=== PATIENT | female | born 1935 | race Caucasian/White ===

== ENCOUNTER 2017-02-15 13:55 | Observation (INO) | payer MEDICARE, BC ==
[~2017-02-15 13:55] MED LIST: ASPIR 8181 MG PO; CITRACAL + D C1 EACH PO; CLARITIN10 M2 PO; COZAAR100 MG PO; FISH OIL 1,2001 CAP PO; FLEXERIL10 MG PO; LEVOTHROID75 MCG PO; LUTEIN6 M1 PO; NORVASC5 M1 PO; VITAMIN B12500 MCG PO; VITAMIN D1000 UNI1 PO; [UNRECOGNIZED DRUG - OTHER] PO
[2017-02-15] MEDS ORDERED: LOSARTAN POTAS100 M1 PO (14:43)
[2017-02-15] MEDS ORDERED: POTASSIUM CHLO20 ME3 PO (14:43)
[2017-02-15] MEDS ORDERED: LEVOTHYROXINE75 MC3 PO (14:43)
[2017-02-15] MEDS ORDERED: LASIX20 M1 PO (15:02)
[2017-02-15] MEDS ORDERED: ASPIRIN EC81 MG PO (15:02)
[2017-02-15] MEDS ORDERED: METOPROLOL TAR100 M2 PO (15:02)
[2017-02-15] MEDS ORDERED: VITAMIN D31000 UNI3 PO (15:03)
[2017-02-15] MEDS ORDERED: CITRACAL + D M1 EAC1 PO (15:03)
[2017-02-15] MEDS ORDERED: PRESERVISION L1 EACH PO (15:04)
[2017-02-15] MEDS ORDERED: FISH OIL EC 1,1 EACH PO (15:05)
[2017-02-15 17:52] LABS: BASO % 0.6 % (0-2); BASO ABSOLUTE COUNT 0.1 tho/cmm (0.0-0.2); EOS % 2.5 % (0-7); EOSINOPHIL ABSOLUTE COUNT 0.2 tho/cmm (0.0-0.7); HCT-HEMATOCRIT 41.8 % (34.0-49.0); HGB-HEMOGLOBIN 14.3 gm/dl (12.0-15.5); IMMATURE GRANULOCYTES ABSOLUTE 0.03 tho/cmm (0-0.03); IMMATURE GRANULOCYTES PERCENT 0.3 % (0-0.3); LYMPH ABSOLUTE COUNT 1.6 tho/cmm (0.8-4.5); MCHC MEAN CORPUSCULAR HGB CONC 34.2 % (32.0-36.0); MCV (MEAN CELL VOLUME) 93.5 fl (82.0-96.0); MEAN PLATELET VOLUME 9.4 cmc (9.4-12.4); MONO % 10.4 % (0-12); MONOCYTE ABSOLUTE COUNT 0.9 tho/cmm (0.0-1.2); NEUTROPHIL ABSOLUTE COUNT 5.9 tho/cmm (1.6-8.0); NEUTROPHIL-AUTOMATED 5.9 tho/cmm (1.6-8.0); NEUTROPHILS % 68.2 % (40-80); PLATELET COUNT 268 tho/cmm (150-450); RED BLOOD COUNT 4.47 mil/cmm (4.00-5.20); RED CELL DISTRIBUTION WIDTH 12.9 % (12.4-16.4); WHITE BLOOD COUNT 8.7 tho/cmm (4.0-10.0)
[2017-02-15 18:01] LABS: MAGNESIUM 2.5 mg/dl (1.8-2.6)
[2017-02-15 18:05] LABS: ALBUMIN 3.8 g/dl (3.5-5.0); ALKALINE PHOSPHATASE 49 U/L (33-138); ALT/SGPT 25 U/L (12-78); ANION GAP 11 mmol/L (0-20); AST/SGOT 22 U/L (10-40); BILIRUBIN,TOTAL 0.6 mg/dl (0-1.5); BLOOD UREA NITROGEN 5 mg/dl (6-24); CALCIUM 8.8 mg/dl (8.5-10.5); CARBON DIOXIDE-VENOUS 30 mmol/L (22-32); CHLORIDE 102 mmol/l (96-110); CREATININE 0.58 mg/dl (0.50-1.10); GLUCOSE 109 mg/dL (70-110); POTASSIUM 3.3 mmol/L (3.7-5.1); SODIUM 140 mmol/L (135-145); eGFR VALUE FOR BLACK >90 mL/Min
[2017-02-15 18:09] LABS: TSH-THYROID STIMULATING HORM. 7.56 uIU/ml (0.40-3.80)
[2017-02-16 06:11] LABS: BASO % 0.7 % (0-2); BASO ABSOLUTE COUNT 0.1 tho/cmm (0.0-0.2); EOS % 4.6 % (0-7); EOSINOPHIL ABSOLUTE COUNT 0.4 tho/cmm (0.0-0.7); HCT-HEMATOCRIT 40.8 % (34.0-49.0); HGB-HEMOGLOBIN 13.9 gm/dl (12.0-15.5); IMMATURE GRANULOCYTES ABSOLUTE 0.02 tho/cmm (0-0.03); IMMATURE GRANULOCYTES PERCENT 0.3 % (0-0.3); LYMPH % 20.7 % (20-45); LYMPH ABSOLUTE COUNT 1.6 tho/cmm (0.8-4.5); MCH (MEAN CORPUSCULAR HGB) 31.7 pg (28.0-32.0); MCHC MEAN CORPUSCULAR HGB CONC 34.1 % (32.0-36.0); MCV (MEAN CELL VOLUME) 92.9 fl (82.0-96.0); MEAN PLATELET VOLUME 9.4 cmc (9.4-12.4); MONO % 12.3 % (0-12); MONOCYTE ABSOLUTE COUNT 0.9 tho/cmm (0.0-1.2); NEUTROPHIL ABSOLUTE COUNT 4.7 tho/cmm (1.6-8.0); NEUTROPHIL-AUTOMATED 4.7 tho/cmm (1.6-8.0); NEUTROPHILS % 61.4 % (40-80); PLATELET COUNT 268 tho/cmm (150-450); RED BLOOD COUNT 4.39 mil/cmm (4.00-5.20); RED CELL DISTRIBUTION WIDTH 12.7 % (12.4-16.4); WHITE BLOOD COUNT 7.6 tho/cmm (4.0-10.0)
[2017-02-16 06:36] LABS: ANION GAP 12 mmol/L (0-20); BLOOD UREA NITROGEN 9 mg/dl (6-24); CALCIUM 8.5 mg/dl (8.5-10.5); CARBON DIOXIDE-VENOUS 29 mmol/L (22-32); CHLORIDE 102 mmol/l (96-110); CREATININE 0.56 mg/dl (0.50-1.10); GLUCOSE 90 mg/dL (70-110); MAGNESIUM 2.5 mg/dl (1.8-2.6); POTASSIUM 3.3 mmol/L (3.7-5.1); SODIUM 140 mmol/L (135-145); eGFR VALUE FOR BLACK >90 mL/Min
[2017-02-16] MEDS ORDERED: COZAAR100 M1 PO (16:50)
== END 2017-02-16 18:45 ==
LOC: 5EB 13:55
PROVIDERS: Internal Medicine; ADMIT Hospitalist
DX: I16.0 Hypertensive urgency (principal); G93.41 Metabolic encephalopathy; E03.9 Hypothyroidism, unspecified; E87.6 Hypokalemia; J30.2 Other seasonal allergic rhinitis; M18.0 Bilateral primary osteoarthritis of first carpometacarpal joints; Z86.73 Personal history of transient ischemic attack (TIA), and cerebral infarction without residual deficits; Z79.82 Long term (current) use of aspirin; Z79.899 Other long term (current) drug therapy
CPT/HCPCS: G0378; G0379; G8978-GP-CI; G8979-GP-CH; G8980-GP-CI; G8987-GO-CI; G8988-GO-CJ; G8989-GO-CI; J1650